=== PATIENT | male | born 1935 | race Caucasian/White ===

== ENCOUNTER 2017-03-02 10:44 | Day surgery (SDC) | payer MEDICARE ==
[2017-03-02 13:57] LABS: BLOOD UREA NITROGEN 10 mg/dL (9-20); CREATININE 0.9 mg/dL (0.66-1.25); EST GLOMERULAR FILTRATION RATE > 60 ml/min
[2017-03-02] MEDS ORDERED: FENTANYL PF 100MCG/2ML VIAL IV ONE (14:00)
[2017-03-02] MEDS ORDERED: PROPOFOL 10 MG/ML VIAL IV ONE (14:00)
[2017-03-02] MEDS ORDERED: LIDOCAINE 2% MDV (20MG/ML) 20ML VIAL IV ONE (14:00)
--- NOTE | 2017-03-02 16:49 | CT SCAN REPORT ---
EXAM: CT SCAN ABDOMEN/PELVIS W CONTRAST HISTORY: COLON MASS IDENTIFIED ON COLONOSCOPY. TECHNIQUE: Sequential axial images were obtained from the diaphragm through the ischiorectal fossa after intravenous and oral administration of 100 mL of Omnipaque-300 contrast material. COMPARISON: 03/02/2016 FINDINGS: Visualized lung bases appear normal. No lesions are identified within the liver. The gallbladder, pancreas, spleen, adrenal glands, kidneys appear normal. There is a long segment of wall thickening involving the cecum and ascending colon. There is circumferential wall thickening. There is extension to the hepatic flexure. The segment measures approximately 10.6 cm. There is involvement of the terminal ileum at the ileocecal valve. There are adjacent lymph nodes in the mesentery measuring up to 15 mm. There is mild atheromatous change of the abdominal aorta. There is a focal area of wall thickening on the right side of the urinary bladder. There is prostate gland hyperplasia. There is osteopenia and multilevel degenerative change of the lumbar spine. IMPRESSION: 1. A 10.1 CM LONG SEGMENT OF CIRCUMFERENTIAL WALL THICKENING INVOLVING THE CECUM AND ASCENDING COLON. 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 THERE IS INVOLVEMENT OF THE ILEOCECAL VALVE AND DISTAL TERMINAL ILEUM. THERE ARE ADJACENT MESENTERIC LYMPH NODES MEASURING A MAXIMUM DIAMETER OF 1.5 CM. 2. FOCAL AREA OF WALL THICKENING INVOLVING THE RIGHT LATERAL ASPECT OF THE URINARY BLADDER. THERE IS PROSTATE GLAND HYPERPLASIA. JOB NUMBER: [id number] MTDD
--- NOTE | 2017-03-06 09:00 | Operative Note ---
DATE OF SURGERY: 03/02/2017 SURGEON: Barbara Araiza MD OPERATIONS: 1. ESOPHAGOGASTRODUODENOSCOPY. 2. COLONOSCOPY. INDICATIONS: This is an 81-year-old male with history of severe anemia who presented for both esophagogastroduodenoscopy and colonoscopy. POSTOPERATIVE DIAGNOSES: 1. Ulcerative esophagitis. 2. Mild gastritis. 3. Normal duodenum. 4. A large, nearly obstructing ascending/hepatic flexure mass, status post biopsies and inking. ANESTHESIA: Sedation is per Anesthesia. Pulse oximetry was monitored throughout the procedures to maintain O2 saturation of 90% or greater. Supplemental oxygen was administered via nasal cannula. Cardiac and vital signs were monitored throughout the duration of the procedure, and they were stable. The procedures of esophagogastroduodenoscopy and colonoscopy and risks and alternatives of the procedures, including the risk of bleeding and perforation, among others, were explained to the patient who voiced understanding and agreed to have the procedures done. Physical examination was performed, and the patient was found stable for sedation. PROCEDURE: The patient was placed in the left lateral position. Sedation was initiated. A plastic bite block was inserted into the oral cavity. The Olympus [id number] gastroscope was introduced into the oral cavity and advanced to the proximal esophagus without difficulty. The esophageal mucosa was carefully examined upon introduction of the gastroscope. The proximal, mid, and distal esophageal mucosa appeared normal. In the GE junction was an ulcer that was noted. The gastroscope was then advanced into the stomach and surveillance of the stomach revealed normal gastric fundus with diffuse erythema along the gastric body and antrum but no ulcers were noted. The gastroscope was then advanced into the descending duodenum without difficulty. The duodenal bulb and descending duodenum appeared normal. The gastroscope was then withdrawn into the stomach and retroflexion was performed. There were no other lesions noted. The gastroscope was then straightened and withdrawn while carefully examining the gastric and esophageal mucosa. No other lesions noted. He remained with stable vital signs and was repositioned for colonoscopy. A digital rectal exam was performed and showed some mild external hemorrhoids with no palpable rectal masses. An Olympus PCF-180AL colonoscope was then inserted into the rectum under direct visualization. It was advanced to the hepatic flexure without any difficulty. At the level of the hepatic flexure was a large ulcerated, necrotic mass that was noted. Multiple biopsies were obtained and the site was inked with spot ink. The colonoscope could not be advanced beyond the mass. The colonoscope was then withdrawn while carefully examining the colonic mucosal surfaces. No other lesions were noted. In the rectum, retroflexion was performed and grade 1 internal hemorrhoids were noted. The colonoscope was then withdrawn and the procedures were terminated. The patient tolerated the procedures well without any immediate complications. He remained with stable vital signs and was transferred to the recovery room. RECOMMENDATIONS: 1. The patient is to be on low-residue diet. 2. The patient is to have a consultation with Dr. Doyle and have a CT scan of the abdomen and pelvis at this point. Thank you for allowing me to participate in the care of your patient. Barbara Araiza MD CC: Dr. Aureliano ZAPATA
== END 2017-03-02 13:54 | disposition home or self-care (01) ==
LOC: HOP 10:44
PROVIDERS: ATTEND Internal Medicine Gastroenterology
DX: D00.2 Carcinoma in situ of stomach (principal); C18.3 Malignant neoplasm of hepatic flexure; K22.10 Ulcer of esophagus without bleeding; F17.290 Nicotine dependence, other tobacco product, uncomplicated; E11.9 Type 2 diabetes mellitus without complications; Z79.84 Long term (current) use of oral hypoglycemic drugs; I10 Essential (primary) hypertension; E78.00 Pure hypercholesterolemia, unspecified
CPT/HCPCS: 84520; 82565; 74177; 93005; 93010; 43239; 45380; 00740; Q9967; J3010